=== PATIENT | male | born 1955 | race Caucasian/White ===

== ENCOUNTER 2019-03-02 12:48 | Emergency (ER) | payer OTHER ==
[2019-03-02] MEDS ORDERED: HYDROCODONE/APAP 10/325 TAB ONE (13:12)
[2019-03-02] MEDS ORDERED: MORPHINE 4 MG/ML SYR ONE ×2 (13:31→14:31)
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
[2019-03-02 16:26] VITALS: BP 152/80; TEMP 97; O2SAT 95
== END 2019-03-02 16:01 | disposition home or self-care (01) ==
LOC: ER 12:48
DX: T23.201A Burn of second degree of right hand, unspecified site, initial encounter (principal); X10.2XXA Contact with fats and cooking oils, initial encounter; Y93.9 Activity, unspecified; Y92.9 Unspecified place or not applicable; E11.9 Type 2 diabetes mellitus without complications; Z79.4 Long term (current) use of insulin
CPT/HCPCS: 96372; 99284

== ENCOUNTER 2023-11-02 15:12 | Emergency (ER) | payer OTHER ==
[2023-11-02 15:53] LABS: Absolute Monocytes 0.7 K/uL (0.1-1.3); Absolute Neutrophil 7.6 K/uL (1.8-8.0); Basophils % 0.3 % (0-1.3); Eosinophils % 0.3 % (0-4.4); Hematocrit 46.7 % (39.6-49.0); Hemoglobin 15.3 g/dL (13.6-17.9); Lymphocytes % 10.6 % (15.3-44.8); MCH 29.1 pg (27.0-35.0); MCHC 32.8 g/dL (32.0-36.0); MCV 88.6 fL (80-100); MPV 6.9 fL (7.6-11.3); Monocytes % 7.6 % (3.3-12.3); Neutrophils % 81.2 % (41.7-73.7); Nucleated Red Blood Cells % 0.1 % (0-0); Platelets 247 thou/uL (152-406); RBC Red Blood Cell Count 5.27 M/uL (4.33-5.43); Red Cell Distribution Width 16.2 % (12.1-15.2)
[2023-11-02] MEDS ORDERED: ONDANSETRON 4 MG/2 ML VIAL ONE (15:55)
[2023-11-02 16:13] LABS: Albumin 3.5 g/dL (3.4-5.0); Anion Gap 9.6 mEq/L (5.0-15.0); Bilirubin Total 0.7 mg/dL (0.2-1.0); Globulin 3.5 g/dL (2.3-3.5); Potassium 4.6 mEq/L (3.5-5.1)
[2023-11-02 16:17] LABS: Sqamous Epithelial None Seen /HPF (None Seen); Urine Bacteria <20 /HPF (<20); Urine Crystals Unidentified Few /HPF (None Seen); Urine Culture Reflex Order REFLEXED; Urine Microscopic Reflex YN ORDER UMIC; Urine RBC >50 /HPF (None Seen); Urine WBC >50 /HPF (<5); Urine WBC Clump Few /HPF (None Seen); Urine Yeast (Budding) Moderate /HPF (None Seen)
[2023-11-02 16:35] LABS: Specific Gravity 1.019 (1.005-1.030); Urine Bilirubin NEGATIVE (Negative); Urine Blood 3+ (OVER) (Negative); Urine Clarity Extremely Turbid (Clear); Urine Color Light-Orange (Yellow); Urine Glucose NEGATIVE (Negative); Urine Ketones NEGATIVE (Negative); Urine Nitrite NEGATIVE (Negative); Urine Protein 1+ (Negative); Urine Urobilinogen Normal (Normal)
[2023-11-02] MEDS ORDERED: MORPHINE 4 MG/ML SYR ONE (17:04)
--- NOTE | 2023-11-02 17:06 | RAD REPORT ---
EXAM DESCRIPTION: CT - Abdomen Pelvis Wo Contrast - 11/02/2023 4:42 pm CLINICAL HISTORY: Abdominal pain COMPARISON: None TECHNIQUE: Computed axial tomography of the abdomen and pelvis was obtained. IV and oral contrast we re not requested. All CT scans are performed using dose optimization technique as appropriate and may include automated exposure control or mA/KV adjustment according to patient size. FINDINGS: The evaluation of solid organs, vessels and bowel is limited secondary to the lack of con trast administration. Hepatic granulomata. Spleen, pancreas, adrenals and right kidney appear grossly normal. 20 millimeter metallic structure lies adjacent medial aspect of left kidney. Mild left hydronephrosis . 4 millimeter calculus left UPJ. Mild stranding left perirenal fat. Small bilateral renal calculi Marked prostatic enlargement. The appendix is normal. There is no evidence of diverticulitis. Borderline gallbladder distention Spondylosis lumbar spine results spinal stenosis IMPRESSION: 4 millimeter calculus left UPJ with mild left hydronephrosis
--- NOTE | 2023-11-02 17:06 | RAD REPORT ---
EXAM DESCRIPTION: US - Abdomen Exam Limited - 11/02/2023 4:16 pm CLINICAL HISTORY: Abdominal pain. COMPARISON: None. FINDINGS: Evaluation somewhat limited secondary to body habitus. Borderline gallbladder distention. Gallbladder wall not thickened. A gallstone not seen The biliary tree is normal caliber. IMPRESSION: Borderline gallbladder distention
[2023-11-02] MEDS ORDERED: PROMETHAZINE INJ 25 MG/ML AMP ONE (17:36)
[2023-11-02] MEDS ORDERED: TAMSULOSIN 0.4 MG SR CAP ONE (17:36)
[2023-11-02] MEDS ORDERED: CIPROFLOXACIN HCL 500 MG TAB ONE (17:37)
[2023-11-02] MEDS ORDERED: MAGNESIUM SULFATE 1 gm IVPB 1 GM/100 ML BAG IV ONE (17:38)
--- NOTE | 2023-11-02 17:55 | ER ---
Nurse's Notes [facility] Name: Eleazar Somers Age: 68 yrs Sex: Male : 1955 Arrival Date: 11/02/2023 Time: 15:12 Bed 2 Private MD: Diagnosis: Urinary calculus, unspecified Presentation: 11/01 15:19 Chief complaint: Patient states: Abdominal pain radiating to L side and midline back x al5 2 days. Coronavirus screen: Client denies travel out of the [place] in the last 14 days. At this time, the client does not indicate any symptoms associated with coronavirus-19. Ebola Screen: Patient denies exposure to infectious person. Patient denies travel to an Ebola-affected area in the 21 days before illness onset. No symptoms or risks identified at this time. Initial Sepsis Screen: Does the patient meet any 2 criteria? No. Patient's initial sepsis screen is negative. Does the patient have a suspected source of infection? No. Patient's initial sepsis screen is negative. Risk Assessment: Do you want to hurt yourself or someone else? Patient reports no desire to harm self or others. Onset of symptoms was October 31, 2023. 15:19 Method Of Arrival: Wheelchair al5 15:19 Acuity: NATHAN 3 al5 Triage Assessment: 15:24 General: Appears in no apparent distress. Behavior is calm, cooperative. Pain: al5 Complains of pain in abdomen Pain radiates to back Pain currently is 8 out of 10 on a pain scale. Quality of pain is described as throbbing, Pain began 2-3 days ago. Is continuous. Neuro: No deficits noted. Level of Consciousness is awake, alert, obeys commands, Oriented to person, place, time, situation, Gait is unsteady, due to amputation of toes.. Speech is normal, Facial symmetry appears normal. Cardiovascular: No deficits noted. Denies chest pain, shortness of breath, Patient's skin is warm and dry. Respiratory: No deficits noted. Airway is patent Trachea midline Respiratory effort is even, unlabored, Respiratory pattern is regular, symmetrical. GI: Abdomen is obese, Abd is soft X 4 quads Abdomen is tender to palpation x4 quadrants, but more so midline abdomen. Patient currently denies diarrhea, nausea, vomiting. Derm: Skin is pink, warm \T\ dry. normal, Skin temperature is warm Reports currently being seen by wound care for his feet. 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 - Infectious Disease History:: Denies. - Family history:: not pertinent. - Social history:: Smoking status: Patient denies any tobacco usage or history of. - Hospitalizations: : No recent hospitalization is reported. Screenin:28 [facility] ED Fall Risk Assessment (Adult) History of falling in the last 3 months, al5 including since admission No falls in past 3 months (0 pts) Confusion or Disorientation No (0 pts) Intoxicated or Sedated No (0 pts) Impaired Gait Yes (1 pt) Mobility Assist Device Used Yes (1 pt) Altered Elimination No (0 pt) Score/Fall Risk Level 0 - 2 = Low Risk Oriented to surroundings, Maintained a safe environment, Hourly rounding (assess needs \T\ fall precautionary measures) done. Abuse screen: Denies threats or abuse. Denies injuries from another. Nutritional screening: No deficits noted. Tuberculosis screening: No symptoms or risk factors identified. Assessment: 15:28 Reassessment: see triage note.. al5 17:57 General: pt pending discharge for administration of medication.. al5 Vital Signs: 15:19 BP 135 / 70; Pulse 83; Resp 18; Temp 98.2; Pulse Ox 97% on R/A; Weight 129.27 kg; al5 Height 6 ft. 2 in. ; Pain 8/10; 15:45 BP 121 / 70; Pulse 75; Resp 18; Pulse Ox 94% on R/A; al5 15:45 BP 126 / 72; Pulse 71; Resp 15; Pulse Ox 94% on R/A; al5 16:15 BP 129 / 77; Pulse 80; Resp 17; Pulse Ox 95% on R/A; al5 17:00 BP 136 / 79; Pulse 78; Resp 18; Pulse Ox 94% on R/A; Pain 10/10; al5 18:13 BP 128 / 73; Pulse 73; Resp 19; Pulse Ox 95% on R/A; Pain 0/10; al5 19:11 BP 140 / 78; Pulse 74; Resp 18; Pulse Ox 94% on R/A; cm10 15:19 Body Mass Index 36.59 (129.27 kg, 187.96 cm) al5 15:19 Pain Scale: Adult al5 17:00 Pain Scale: Adult al5 18:13 Pain Scale: Adult al5 ED Course: 15:13 Patient arrived in ED. mb9 15:13 Danyel Dia MD is Attending Physician. rn 15:19 Peggy Hester, ENRIQUE is Primary Nurse. al5 15:21 Triage completed. al5 15:27 Arm band placed on left wrist. Patient placed in an exam room, on a stretcher, on al5 ekg monitor. 15:29 Patient has correct armband on for positive identification. Bed in low position. Call al5 light in reach. Side rails up X 1. 15:29 No provider procedures requiring assistance completed. al5 15:41 Inserted saline lock: 20 gauge in right wrist, using aseptic technique. Blood collected.al5 15:42 Initial lab(s) drawn, by me, sent to lab. Urine collected: clean catch specimen, cloudy.al5 16:18 US Abdomen Limited In Process Unspecified. EDMS 16:43 Abdomen In Process Unspecified. EDMS 17:55 Eduardo Smith MD is Referral Physician. rn 19:11 IV discontinued, intact, bleeding controlled, No redness/swelling at site. Pressure cm10 dressing applied. 19:12 Provided Education on: Follow-up instructions. cm10 Administered Medications: 16:18 Drug: Ondansetron IVP 4 mg IVP once; over 2 minutes Route: IVP; Site: right wrist; al5 17:08 Follow up: Response: No adverse reaction al5 17:08 Drug: morphine IVP or IV 4 mg IVP once over 4 mins Route: IVP; Infused Over: 4 mins; al5 Site: right wrist; 17:32 Follow up: Response: No adverse reaction; Marked relief of symptoms al5 17:57 Follow up: Response: No adverse reaction; Marked relief of symptoms al5 17:54 Drug: Flomax PO 0.4 mg PO once Route: PO; al5 18:15 Follow up: Response: No adverse reaction al5 17:54 Drug: Ciprofloxacin PO 500 mg PO once Route: PO; al5 18:15 Follow up: Response: No adverse reaction al5 17:54 Drug: Promethazine IVP 12.5 mg IVP once Route: IVP; Site: right wrist; al5 18:14 Follow up: Response: No adverse reaction al5 17:55 Drug: Magnesium Sulfate IVPB 1 grams IVPB once over 1 hrs Route: IVPB; Infused Over: 1 al5 hrs; Site: right wrist; 19:11 Follow up: Response: No adverse reaction; IV Status: Completed infusion; IV Intake: cm10 100ml Medication: 19:12 VIS not applicable for this client. cm10 Intake: 19:11 IV: 100ml; Total: 100ml. cm10 Outcome: 17:55 Discharge ordered by . rn 19:11 Discharged to home via wheelchair, cm10 19:11 Condition: good 19:12 Discharge instructions given to patient, Instructed on discharge instructions, follow cm10 up and referral plans. medication usage, Demonstrated understanding of instructions, follow-up care, medications, Prescriptions given X 4, 19:13 Patient left the ED. cm10 Signatures: Dispatcher [employer] EDMS Danyel Dia MD MD rn Breneman, Mary Beth RN RN mb9 Radha Giron RN RN cm10 Peggy Hester RN RN al5
--- NOTE | 2023-11-02 17:55 | EDPHYS ---
Physician Documentation [facility] Name: Eleazar Somers Age: 68 yrs Sex: Male : 1955 Arrival Date: 11/02/2023 Time: 15:12 Bed 2 Private MD: ED Physician Danyel Dia HPI: 11/01 15:19 This 68 yrs old Male presents to ER via Unassigned with complaints of abdominal pain. rn 15:19 The patient presents with abdominal pain that is diffuse. rn 15:21 Onset: The symptoms/episode began/occurred 2 day(s) ago. The symptoms radiate to back. rn The symptoms are described as achy, crampy. Modifying factors: The symptoms are alleviated by nothing, the symptoms are aggravated by nothing. Severity of pain: At its worst the pain was moderate in the emergency department the pain is unchanged. The patient has not experienced similar symptoms in the past. Patient reports diffuse abdominal pain that radiates to the back, began a few days ago. No fever or chills. Reports nausea but no vomiting. No diarrhea.. 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 - Infectious Disease History:: Denies. - Family history:: not pertinent. - Social history:: Smoking status: Patient denies any tobacco usage or history of. - Hospitalizations: : No recent hospitalization is reported. ROS: 15:21 Constitutional: Negative for fever, chills, and weight loss, Cardiovascular: Negative rn for chest pain, palpitations, and edema, Respiratory: Negative for shortness of breath, cough, wheezing, and pleuritic chest pain, Abdomen/GI: Positive for abdominal pain and nausea Back: Negative for injury and pain, MS/Extremity: Negative for injury and deformity, Skin: Negative for injury, rash, and discoloration, Neuro: Positive for generalized weakness Exam: 15:21 Constitutional: This is a well developed, well nourished patient who is awake, alert, rn and in no acute distress. Cardiovascular: Regular rate and rhythm. No pulse deficits. Respiratory: No increased work of breathing, no retractions or nasal flaring. Abdomen/GI: Soft, no focal tenderness Back: No spinal tenderness. MS/ Extremity: Pulses equal, no cyanosis. Neuro: Awake and alert, GCS 15 Vital Signs: 15:19 BP 135 / 70; Pulse 83; Resp 18; Temp 98.2; Pulse Ox 97% on R/A; Weight 129.27 kg; al5 Height 6 ft. 2 in. ; Pain 8/10; 15:45 BP 121 / 70; Pulse 75; Resp 18; Pulse Ox 94% on R/A; al5 15:45 BP 126 / 72; Pulse 71; Resp 15; Pulse Ox 94% on R/A; al5 16:15 BP 129 / 77; Pulse 80; Resp 17; Pulse Ox 95% on R/A; al5 17:00 BP 136 / 79; Pulse 78; Resp 18; Pulse Ox 94% on R/A; Pain 10/10; al5 18:13 BP 128 / 73; Pulse 73; Resp 19; Pulse Ox 95% on R/A; Pain 0/10; al5 19:11 BP 140 / 78; Pulse 74; Resp 18; Pulse Ox 94% on R/A; cm10 15:19 Body Mass Index 36.59 (129.27 kg, 187.96 cm) al5 15:19 Pain Scale: Adult al5 17:00 Pain Scale: Adult al5 18:13 Pain Scale: Adult al5 MDM: 15:14 Patient medically screened. rn 17:54 Differential diagnosis: appendicitis, bowel obstruction, non-specific abd pain, rn Pyelonephritis, Ureterolithiasis, urinary tract infection. Data reviewed: vital signs, nurses notes, lab test result(s), radiologic studies, CT scan, and as a result, I will discharge patient. Care significantly affected by the following chronic conditions: Diabetes. Counseling: I had a detailed discussion with the patient and/or guardian regarding the historical points, exam findings, and any diagnostic results supporting the discharge/admit diagnosis, lab results, radiology results, the need for outpatient follow up, to return to the emergency department if symptoms worsen or persist or if there are any questions or concerns that arise at home. Response to treatment: the patient's symptoms have markedly improved after treatment, and as a result, I will discharge patient. Special discussion: Based on the patient's Hx, exam, and Dx evaluation, there is no indication for emergent surgery or inpatient Tx. It is understood by the patient/guardian that if the Sx's persist or worsen they need to return immediately for re-evaluation. I discussed with the patient/guardian in detail that at this point there is no indication for admission to the hospital. It is understood, however, that if the symptoms persist or worsen the patient needs to return immediately for re-evaluation. ED course: CT shows 4 mm proximal stone. Pain and nausea well-controlled. Stable vitals. I have personally reviewed all of the results, including but not limited to blood tests and imaging deemed necessary to safely discharge this patient at this time. All results given to and printed out for patient. I personally went over all the results with the patient and answered all questions. Patient will follow-up with PCP and or specialist as discussed. Return precautions given and understood. Will return if pain or nausea does not controlled or worsens at home.. 11/01 15:14 Order name: CBC with Diff; Complete Time: 16:25 11/01 15:14 Order name: CMP; Complete Time: 16:25 11/01 15:14 Order name: Lipase; Complete Time: 16:25 11/01 15:14 Order name: Urinalysis w/ reflexes; Complete Time: 16:38 11/01 16:39 Order name: Urine Culture [facility] 11/01 15:14 Order name: US Abdomen Limited; Complete Time: 17:08 11/01 16:34 Order name: Abdomen ; Complete Time: 17:08 [facility] 11/01 15:14 Order name: IV Saline Lock; Complete Time: 15:42 rn 11/01 15:14 Order name: Labs collected and sent; Complete Time: 15:42 rn Administered Medications: 16:18 Drug: Ondansetron IVP 4 mg IVP once; over 2 minutes Route: IVP; Site: right wrist; al5 17:08 Follow up: Response: No adverse reaction al5 17:08 Drug: morphine IVP or IV 4 mg IVP once over 4 mins Route: IVP; Infused Over: 4 mins; al5 Site: right wrist; 17:32 Follow up: Response: No adverse reaction; Marked relief of symptoms al5 17:57 Follow up: Response: No adverse reaction; Marked relief of symptoms al5 17:54 Drug: Flomax PO 0.4 mg PO once Route: PO; al5 18:15 Follow up: Response: No adverse reaction al5 17:54 Drug: Ciprofloxacin PO 500 mg PO once Route: PO; al5 18:15 Follow up: Response: No adverse reaction al5 17:54 Drug: Promethazine IVP 12.5 mg IVP once Route: IVP; Site: right wrist; al5 18:14 Follow up: Response: No adverse reaction al5 17:55 Drug: Magnesium Sulfate IVPB 1 grams IVPB once over 1 hrs Route: IVPB; Infused Over: 1 al5 hrs; Site: right wrist; 19:11 Follow up: Response: No adverse reaction; IV Status: Completed infusion; IV Intake: cm10 100ml Disposition Summary: 11/02/23 17:55 Discharge Ordered Notes: Location: Home rn Problem: new rn Symptoms: have improved rn Condition: Stable rn Diagnosis - Urinary calculus, unspecified rn Followup: rn - With: Eduardo Smith MD - When: As needed - Reason: Recheck today's complaints, Re-evaluation by your physician Discharge Instructions: - Discharge Summary Sheet rn - Kidney Stones rn - Renal Colic rn Forms: - Medication Reconciliation Form rn - Antibiotic clinical appeals rn - Prescription Opioid Use rn - Patient Portal Instructions rn - Leadership Thank You Letter rn Prescriptions: - Flomax 0.4 mg Oral capsule - take 1 capsule ORAL route every 24 hours; 10 capsule; Refills: 0, Product rn Selection Permitted - ondansetron 4 mg Oral Tablet,disintegrating - take 1 tablet ORAL route every 8 hours As needed; 12 tablet; Refills: 0, rn Product Selection Permitted - Cipro 500 mg Oral Tablet - take 1 tablet ORAL route every 12 hours for 7 days; 14 tablet; Refills: 0, rn Product Selection Permitted - Tramadol 50 mg Oral Tablet - take 1 tablet ORAL route every 8 hours as needed; 12 tablet; Refills: 0, rn Product Selection Permitted Signatures: Dispatcher [employer] EDDanyel Pfeiffer MD MD rn Langhorst, Amanda, RN RN al5 Martinez, Clarissa RN cm10 Corrections: (The following items were deleted from the chart) 16:34 15:15 Abdomen Pelvis W [id number] ordered. EDMS EDMS
[2023-11-02 20:05] VITALS: BP 140/78; TEMP 98.2; O2SAT 94
== END 2023-11-02 19:13 | disposition home or self-care (01) ==
LOC: ER 15:12
DX: N20.9 Urinary calculus, unspecified (principal)
CPT/HCPCS: 96365; 87088; 85025; 81001; 87086; 36415; 83690; 80053; 74176; 76705; 96375; 99284; J2550; J3475; J2405